=== PATIENT | female | born 1985 | race Caucasian/White ===

== ENCOUNTER 2016-09-07 12:34 | Emergency (ER) | payer MEDICAID ==
[2016-09-07 12:47] VITALS: O2SAT 97
[2016-09-07] MEDS ORDERED: NS 1,000 ML IV ONE (13:20)
[2016-09-07 13:30] LABS: % IMMATURE GRANULYOCYTES 0.3 % (0.0-1.1); ABSOLUTE IMMATURE GRANULOCYTES 0.02 10^3/uL (0.00-0.10); ADD DIFF? NO; ADD MORPH? NO; ADD SCAN? NO; ATYPICAL LYMPHOCYTE FLAG 10 (0-99); FRAGMENT RBC FLAG 0 (0-99); HEMATOCRIT 40.3 % (38.0-47.0); HEMOGLOBIN 14.1 g/dL (12.6-16.3); LEFT SHIFT FLG 0 (0-99); LIPEMIA HEMOLYSIS FLAG 90 (0-99); MEAN CELL HEMOGLOBIN 30.4 pg (27.9-34.1); MEAN CELL VOLUME 86.9 fL (81.5-99.8); MEAN PLATELET VOLUME 9.6 fL (8.7-11.7); PLATELET CLUMPS FLAG 0 (0-99); PLATELET COUNT 235 10^3/uL (150-400); RED BLOOD CELL COUNT 4.64 10^6/uL (4.18-5.33)
[2016-09-07 13:37] LABS: ANION GAP 12 mEq/L (8-16); CALCIUM 9.5 mg/dL (8.5-10.4); CARBON DIOXIDE 25 mEq/l (22-31); CHLORIDE 104 mEq/L (97-110); CREATININE 0.6 mg/dL (0.6-1.0); GLOMERULAR FILTRATION RATE > 60; GLUCOSE 90 mg/dL (70-100); POTASSIUM 3.9 mEq/L (3.5-5.2); SODIUM 141 mEq/L (134-144)
--- NOTE | 2016-09-07 13:48 | EDPHY ---
H & P Time Seen by Provider: 09/07/16 13:29 HPI/ROS: CHIEF COMPLAINT: diarrhea HISTORY OF PRESENT ILLNESS: Patient is a 30-year-old female with a history of polycystic ovarian syndrome and previous gastric bypass in 2005 who presents to the emergency department with diarrhea since Thursday. It is nonbloody and not black or dark. Patient initially thought she had a virus but her symptoms have persisted. She denies abdominal pain. She has had no nausea or vomiting. She denies dysuria or frequency. She is not weak. She has had no fevers or chills. REVIEW OF SYSTEMS: My complete review of systems is negative except as mentioned in the HPI. Past Medical/Surgical History: Includes polycystic ovarian syndrome, recurrent UTI Past surgical history: Cholecystectomy, gastric bypass, orthopedic surgery on her finger Social history: The patient denies smoking or drugs. Smoking Status: Never smoked Physical Exam: Vitals noted GENERAL: Well-appearing, in no acute distress, alert. HEENT: Eyes normal to inspection, normal pharynx, no signs of dehydration. NECK: No thyromegaly, no lymphadenopathy, supple. RESPIRATORY: Clear to auscultation bilaterally, no rales, rhonchi or wheezing. CVS: Regular rate and rhythm, no rubs, murmurs, or gallops. ABDOMEN: Soft, nontender, nondistended, no organomegaly. Benign BACK: Normal to inspection, no CVA tenderness. SKIN: Normal color, no rash, warm, dry. No pallor. EXTREMITIES: No pedal edema, no calf tenderness, no joint swelling. NEURO/PSYCH: Alert and oriented x3, normal mood and affect Constitutional: Initial Vital Signs Temperature (C) 36.8 C 09/07/16 12:43 Heart Rate 64 09/07/16 12:43 Respiratory Rate 16 09/07/16 12:43 Blood Pressure 113/64 09/07/16 12:43 O2 Sat (%) 97 09/07/16 12:43 O2 Delivery Mode Room Air Allergies/Adverse Reactions: Penicillins Allergy (Verified 09/16/15 11:25) Home Medications: Medication Instructions Recorded Multiple Vitamin 07/14/14 Vitamin B12 1000MCG/ML (RX) 07/14/14 CALCIUM 09/16/15 IRON 09/16/15 Spironolactone 09/07/16 Medical Decision Making ED Course/Re-evaluation: In the emergency department I discussed possible etiologies with the patient. Laboratory studies were ordered. Patient's CBC and chemistry were normal. Patient appears well on her exam. She has a benign abdomen. She has no urinary symptoms. I do not feel the patient needs a urine test at this time. I do not feel she needs stool studies at this point. I discussed this and answered her questions. She will follow up the [facility]. She is given warnings prior to leaving. Differential Diagnosis: My differential includes but is not limited to viral diarrhea, infectious diarrhea, Crohn's disease, diverticulitis, obstruction, perforation, urinary tract infection, pyelonephritis, electrolyte abnormality, sugar abnormality, - Data Points Laboratory Results: Laboratory Results 09/07/16 13:15 09/07/16 13:15 09/07/16 13:15 WBC 6.43 10^3/uL (3.80-9.50) RBC 4.64 10^6/uL (4.18-5.33) Hgb 14.1 g/dL (12.6-16.3) Hct 40.3 % (38.0-47.0) MCV 86.9 fL (81.5-99.8) MCH 30.4 pg (27.9-34.1) MCHC 35.0 g/dL (32.4-36.7) RDW 13.0 % (11.5-15.2) Plt Count 235 10^3/uL (150-400) MPV 9.6 fL (8.7-11.7) Neut % (Auto) 42.3 % (39.3-74.2) Lymph % (Auto) 44.9 % (15.0-45.0) [place] % (Auto) 8.6 % (4.5-13.0) Eos % (Auto) 3.3 % (0.6-7.6) Baso % (Auto) 0.6 % (0.3-1.7) Nucleat RBC Rel Count 0.0 % (0.0-0.2) Absolute Neuts (auto) 2.72 10^3/uL (1.70-6.50) Absolute Lymphs (auto) 2.89 10^3/uL (1.00-3.00) Absolute Monos (auto) 0.55 10^3/uL (0.30-0.80) Absolute Eos (auto) 0.21 10^3/uL (0.03-0.40) Absolute Basos (auto) 0.04 10^3/uL (0.02-0.10) Absolute Nucleated RBC 0.00 10^3/uL (0-0.01) Immature Gran % 0.3 % (0.0-1.1) Immature Gran # 0.02 10^3/uL (0.00-0.10) Sodium 141 mEq/L (134-144) Potassium 3.9 mEq/L (3.5-5.2) Chloride 104 mEq/L (97-110) Carbon Dioxide 25 mEq/l (22-31) Anion Gap 12 mEq/L (8-16) BUN 9 mg/dL (7-23) Creatinine 0.6 mg/dL (0.6-1.0) Estimated GFR > 60 Glucose 90 mg/dL (70-100) Calcium 9.5 mg/dL (8.5-10.4) Medications Given: Discontinued Medications Sodium Chloride (Ns) 1,000 mls @ 0 mls/hr IV ONCE ONE PRN Reason: Wide Open Stop: 09/07/16 13:21 Last Admin: 09/07/16 13:20 Dose: 1,000 mls Departure - Departure Disposition: Home, Routine, Self-Care Clinical Impression: Diarrhea Qualifiers: Diarrhea type: unspecified type Qualifier Code: (R19.7) Diarrhea, unspecified Condition: Good Instructions: Acute Diarrhea (ED) Additional Instructions: Return with increasing frequency of diarrhea, inability to stay hydrated, abdominal pain, fever, repeated vomiting or any other concerns. Referrals: Cora Mcneill, PAC [Primary Care Provider] - 2-3 days, call for appt.
[2016-09-07 15:15] VITALS: BP 106/53; PULSE 61; RESP 20; TEMP 98.8
== END 2016-09-07 15:34 | disposition home or self-care (01) ==
DX: R19.7 Diarrhea, unspecified (principal)

== ENCOUNTER → 2017-03-17 | Outpatient (CLI) | payer MEDICAID | LOC: FIMAGING 09:09 | PROVIDERS: ATTEND Nurse Practitioner Women's Health | DX: N63 Unspecified lump in breast (principal) ==

== ENCOUNTER 2017-09-23 13:58 | Emergency (ER) | payer MEDICAID ==
[2017-09-23] MEDS ORDERED: NS 1,000 ML IV ONE (16:23)
[2017-09-23 16:42] LABS: PLATELET COUNT 252 10^3/uL (150-400)
--- NOTE | 2017-09-23 18:10 | EDPHY ---
H & P Stated Complaint: pt c/o "fogginess" some changes in vision x 2 weeks, since dx ear infection Time Seen by Provider: 09/23/17 16:01 HPI/ROS: Chief complaint: Multiple complaints History of present illness: This is a 31-year-old female who presents to the emergency department for evaluation of multiple complaints. She reports generalized fatigue, body aches, joint aches and what she describes as a fogginess in her brain. She has been suffering from these specific symptoms since at least New Year's. However she states she has been sick with further symptoms for a number of months. She reports it began while she was living in [facility]. She was living there with her , who is from [facility], for the last 3 months. She reports over the last few months she has developed multiple symptoms which include abdominal aching and bloating, occasional diarrhea, blistering of the skin, recurrent ear infections. She has had to keep a journal as she has had numerous problems. She eventually decided to return to the [facility] with her as she did not appear to be improving there despite seeing multiple doctors. She did see her primary care doctor this week and reports she had blood studies and stool samples taken but has not received the results as of yet. Review of systems: A 10 point review of systems was obtained and other than described above was negative - Personal History LMP (Females 10-55): Over 28 Days Ago Tetanus Vaccine Date: 2008 - Medical/Surgical History Hx Asthma: No Hx Chronic Respiratory Disease: No Hx Diabetes: No Hx Cardiac Disease: No Hx Renal Disease: No Hx Cirrhosis: No Hx Alcoholism: No Hx HIV/AIDS: No Hx Splenectomy or Spleen Trauma: No Other PMH: Cholecystectomy, PCOS, Gastric bypass, ortho surg finger, recurrent UTI, pcos - Social History Smoking Status: Never smoked - Physical Exam Exam: General Appearance: Alert, nontoxic. Eyes: Pupils equal and round no pallor or injection. ENT, Mouth: Mucous membranes moist. Tympanic membranes, external auditory canals , external ears and surrounding soft tissue including over the mastoids are unremarkable. Nasopharynx is not injected. There is no rhinorrhea. Oropharynx is not injected. There is no edema. There is no exudate. There is no asymmetry. The uvula is midline. No elevation of the tongue. There is no hoarseness, no drooling, no trismus, no stridor. Respiratory: There are no retractions, lungs are clear to auscultation. Cardiovascular: Regular rate and rhythm. Gastrointestinal: Abdomen is soft and non tender, no masses, bowel sounds normal. Neurological: Alert and oriented x4. Cranial nerves 2-12 grossly intact. Strength and sensation intact and symmetrical. Ambulating without difficulty. No meningismus. Skin: Warm and dry, no rashes. Musculoskeletal: Neck is supple non tender. Extremities are symmetrical, full range of motion. Psychiatric: Patient is oriented X 3, there is no agitation. Constitutional: Initial Vital Signs Temperature (C) 36.8 C 09/23/17 14:05 Heart Rate 77 09/23/17 14:05 Respiratory Rate 18 09/23/17 14:05 Blood Pressure 118/80 09/23/17 14:05 O2 Sat (%) 98 09/23/17 14:05 O2 Delivery Mode Room Air Allergies/Adverse Reactions: Penicillins Allergy (Verified 09/16/15 11:25) Home Medications: Medication Instructions Recorded Vitamin B12 1000MCG/ML (RX) 07/14/14 IRON 09/16/15 Spironolactone 09/07/16 Medical Decision Making ED Course/Re-evaluation: Patient is discussed with my secondary supervising physician Dr. Skyler Peguero. Patient presents to the emergency department with a multitude of complaints that have been going on for a number of months. She is nontoxic. Vital signs are stable. Blood studies are unremarkable. I have had a lengthy discussion with her that there are potentially a number of causes that could be causing her symptoms and at this time it is not clear as to the cause of her symptoms. She is asked to continue to follow-up with her primary care doctor for recheck. She is also referred to infectious disease. Home care was discussed. Return precautions were given. Patient voiced understanding and agreement with plan. Differential Diagnosis: Included but not limited to infections of multiple etiologies, anemia, electrolyte disturbances, inflammatory processes, specifically auto immune - Data Points Laboratory Results: Laboratory Results 09/23/17 16:30 09/23/17 16:30 09/23/17 09/23/17 09/23/17 16:30 16:30 16:30 WBC 8.73 10^3/uL 10^3/uL (3.80-9.50) RBC 4.64 10^6/uL 10^6/uL (4.18-5.33) Hgb 14.2 g/dL g/dL (12.6-16.3) Hct 41.2 % % (38.0-47.0) MCV 88.8 fL fL (81.5-99.8) MCH 30.6 pg pg (27.9-34.1) MCHC 34.5 g/dL g/dL (32.4-36.7) RDW 13.3 % % (11.5-15.2) Plt Count 252 10^3/uL 10^3/uL (150-400) MPV 9.6 fL fL (8.7-11.7) Neut % (Auto) 66.2 % % (39.3-74.2) Lymph % (Auto) 28.1 % % (15.0-45.0) [place] % (Auto) 4.1 % L % (4.5-13.0) Eos % (Auto) 1.0 % % (0.6-7.6) Baso % (Auto) 0.3 % % (0.3-1.7) Nucleat RBC Rel Count 0.0 % % (0.0-0.2) Absolute Neuts (auto) 5.77 10^3/uL 10^3/uL (1.70-6.50) Absolute Lymphs (auto) 2.45 10^3/uL 10^3/uL (1.00-3.00) Absolute Monos (auto) 0.36 10^3/uL 10^3/uL (0.30-0.80) Absolute Eos (auto) 0.09 10^3/uL 10^3/uL (0.03-0.40) Absolute Basos (auto) 0.03 10^3/uL 10^3/uL (0.02-0.10) Absolute Nucleated RBC 0.00 10^3/uL 10^3/uL (0-0.01) Immature Gran % 0.3 % % (0.0-1.1) Immature Gran # 0.03 10^3/uL 10^3/uL (0.00-0.10) ESR 10 MM/HR MM/HR (0-20) Sodium 143 mEq/L mEq/L (135-145) Potassium 4.0 mEq/L mEq/L (3.5-5.2) Chloride 103 mEq/L mEq/L (97-110) Carbon Dioxide 26 mEq/l mEq/l (22-31) Anion Gap 14 mEq/L mEq/L (8-16) BUN 9 mg/dL mg/dL (7-23) Creatinine 0.6 mg/dL mg/dL (0.6-1.0) Estimated GFR > 60 Glucose 99 mg/dL mg/dL (70-100) Calcium 9.8 mg/dL mg/dL (8.5-10.4) Total Bilirubin 0.7 mg/dL mg/dL (0.1-1.4) Conjugated Bilirubin 0.3 mg/dL mg/dL (0.0-0.5) Unconjugated Bilirubin 0.4 mg/dL mg/dL (0.0-1.1) AST 24 IU/L IU/L (14-46) ALT 46 IU/L IU/L (9-52) Alkaline Phosphatase 69 IU/L IU/L (38-126) C-Reactive Protein < 5.0 mg/L mg/L (<10.0) Total Protein 8.0 g/dL g/dL (6.3-8.2) Albumin 4.7 g/dL g/dL (3.5-5.0) Lipase 121 IU/L IU/L (23-300) Beta HCG, Qual NEGATIVE Monoscreen NEGATIVE (NEGATIVE) Medications Given: Discontinued Medications Sodium Chloride (Ns) 1,000 mls @ 0 mls/hr IV EDNOW ONE; Wide Open PRN Reason: Protocol Stop: 09/23/17 16:24 Last Admin: 09/23/17 16:31 Dose: 1,000 mls Departure - Departure Disposition: Home, Routine, Self-Care Clinical Impression: Body aches Fatigue Qualifiers: Fatigue type: unspecified Qualified Code(s): R53.83 - Other fatigue Condition: Good Instructions: Fatigue (ED) Additional Instructions: Follow-up with your primary care doctor and Infectious Disease doctor for continued evaluation and care If symptoms worsen or new symptoms develop return to the emergency room for recheck Referrals: Cora Mcneill PAC [Primary Care Provider] - As per Instructions Fortunato Borjas MD [Medical Doctor] - As per Instructions
[2017-09-23 18:37] VITALS: BP 114/74; PULSE 68; RESP 16; TEMP 98.1; O2SAT 97
== END 2017-09-23 18:36 | disposition home or self-care (01) ==
DX: R53.83 Other fatigue (principal); R52 Pain, unspecified; E86.9 Volume depletion, unspecified

== ENCOUNTER → 2017-10-02 | Outpatient (CLI) | payer MEDICAID | LOC: FIMAGING 14:26 | PROVIDERS: ATTEND Nurse Practitioner | DX: R10.2 Pelvic and perineal pain (principal) ==

== ENCOUNTER 2017-11-29 11:03 | Emergency (ER) | payer MEDICAID ==
[2017-11-29 11:14] VITALS: RESP 16
--- NOTE | 2017-11-29 11:18 | EDPHY ---
H & P Stated Complaint: fatigue, depressed, low appetite Time Seen by Provider: 11/29/17 11:17 HPI/ROS: HPI: This is a 32-year-old female who presents with Chief Complaint: fatigue, depressed, low appetite Location:body Quality: Multiple somatic complaints Duration: Weeks Signs and Symptoms: No fever, no weight loss, no body aches, no joint pain, no rash, no neck stiffness, no headache, no abdominal pain, no nausea, no vomiting , no back pain, no urinary symptoms Timing: Daily Severity: [id number] Context: Patient has a history of recurrent urinary tract infections and polycystic ovary syndrome presents to the emergency room with multiple somatic complaints that of incurring over the last several weeks. She reports that earlier in the year she was diagnosed with Giardia after she travel to [facility] with her for several months. She completed antibiotic treatment and then was on probiotics for 2 weeks but feels like her bowels have never returned to normal. She is eating and drinking fine but notes a decreased appetite. She reports that she has generalized fatigue, low energy level. Feels depressed but denies suicidal ideation, homicidal ideation, hallucinations. Chart review shows mono negative in September. Modifying Factors: None Comment: ROS: see HPI Constitutional: No fever, no chills, no weight loss Eyes: No blurred vision Respiratory: No shortness of breath, no cough Cardiovascular: No chest pain Gastrointestinal: No nausea, no vomiting, no diarrhea Genitourinary: No dysuria Extremities: No myalgias Neurologic: No weakness, no numbness Skin: No rashes Hematologic: No bruising, no bleeding MEDICAL/SURGICAL/SOCIAL HISTORY: Medical history: recurrent UTI, polycystic ovary syndrome Surgical history: Cholecystectomy, PCOS, Gastric bypass, finger surgery Social history: . CONSTITUTIONAL: Flat affect adult white female, nontoxic in appearance, awake and alert, no obvious distress HEENT: Atraumatic and normocephalic, PERRL, EOMI. Tympanic membranes clear. Oropharynx clear, no exudate and moist pink mucosa. Airway patent. No lymphadenopathy. No meningismus. Cardiovascular: Normal S1/S2, regular rate, regular rhythm, without murmur rub or gallop. PULMONARY/CHEST: Symmetrical and nontender. Clear to auscultation bilaterally. Good air movement. No accessory muscle usage. ABDOMEN: Soft, nondistended, nontender, no rebound, no guarding, no peritoneal signs, no masses or organomegaly. No CVAT. EXTREMITIES: 2/2 pulses, strength 5/5, no deformities, no clubbing, no cyanosis or edema. NEUROLOGICAL: no focal neuro deficits. GCS 15. SKIN: Warm and dry, no erythema. no rash. Good capillary refill. Source: Patient, Family () Exam Limitations: No limitations - Personal History Tetanus Vaccine Date: 2008 - Medical/Surgical History Hx Asthma: No Hx Chronic Respiratory Disease: No Hx Diabetes: No Hx Cardiac Disease: No Hx Renal Disease: No Hx Cirrhosis: No Hx Alcoholism: No Hx HIV/AIDS: No Hx Splenectomy or Spleen Trauma: No Other PMH: Cholecystectomy, PCOS, Gastric bypass, ortho surg finger, recurrent UTI, pcos - Social History Smoking Status: Never smoked Constitutional: Initial Vital Signs Temperature (C) 37.1 C 11/29/17 11:11 Heart Rate 76 11/29/17 11:11 Respiratory Rate 16 11/29/17 11:11 Blood Pressure 127/70 H 11/29/17 11:11 O2 Sat (%) 97 11/29/17 11:11 O2 Delivery Mode Room Air Allergies/Adverse Reactions: Penicillins Allergy (Verified 09/16/15 11:25) Home Medications: Medication Instructions Recorded Vitamin B12 1000MCG/ML (RX) 07/14/14 IRON 09/16/15 Spironolactone 09/07/16 Medical Decision Making ED Course/Re-evaluation: Labs and urinalysis ordered Vital signs stable upon arrival. Does not meet M1 criteria or Detainer Hold Labs and urinalysis grossly unremarkable. Discuss follow-up with primary care and behavioral health. This patient was seen under the supervision of my secondary supervising physician. I evaluated care for this patient independently. Differential Diagnosis: Differential diagnosis includes but is not limited to autoimmune disorder, viral syndrome, anemia, thyroid disease, urinary tract infection, major depression. - Data Points Laboratory Results: Laboratory Results 11/29/17 11:41 11/29/17 11:41 11/29/17 11/29/17 11/29/17 12:00 11:41 11:41 WBC RBC Hgb Hct MCV MCH MCHC RDW Plt Count MPV Neut % (Auto) Lymph % (Auto) [place] % (Auto) Eos % (Auto) Baso % (Auto) Nucleat RBC Rel Count Absolute Neuts (auto) Absolute Lymphs (auto) Absolute Monos (auto) Absolute Eos (auto) Absolute Basos (auto) Absolute Nucleated RBC Immature Gran % Immature Gran # ESR Sodium 142 mEq/L mEq/L (135-145) Potassium 4.0 mEq/L mEq/L (3.5-5.2) Chloride 106 mEq/L mEq/L (97-110) Carbon Dioxide 23 mEq/l mEq/l (22-31) Anion Gap 13 mEq/L mEq/L (8-16) BUN 12 mg/dL mg/dL (7-23) Creatinine 0.6 mg/dL mg/dL (0.6-1.0) Estimated GFR > 60 Glucose 103 mg/dL H mg/dL (70-100) Calcium 9.7 mg/dL mg/dL (8.5-10.4) Total Bilirubin 0.9 mg/dL mg/dL (0.1-1.4) AST 35 IU/L IU/L (14-46) ALT 65 IU/L H IU/L (9-52) Alkaline Phosphatase 54 IU/L IU/L (38-126) Total Protein 7.7 g/dL g/dL (6.3-8.2) Albumin 4.6 g/dL g/dL (3.5-5.0) TSH 1.840 uIU/mL uIU/mL (0.465-4.680) Beta HCG, Qual NEGATIVE Urine Color PALE YELLOW Urine Appearance CLEAR Urine pH 7.0 (5.0-7.5) Ur Specific [place] 1.001 L (1.002-1.030) Urine Protein NEGATIVE (NEGATIVE) Urine Ketones NEGATIVE (NEGATIVE) Urine Blood NEGATIVE (NEGATIVE) Urine Nitrate NEGATIVE (NEGATIVE) Urine Bilirubin NEGATIVE (NEGATIVE) Urine Urobilinogen NEGATIVE EU EU (0.2-1.0) Ur Leukocyte Esterase NEGATIVE (NEGATIVE) Urine Glucose NEGATIVE (NEGATIVE) 11/29/17 11:41 WBC 8.26 10^3/uL 10^3/uL (3.80-9.50) RBC 4.80 10^6/uL 10^6/uL (4.18-5.33) Hgb 14.1 g/dL g/dL (12.6-16.3) Hct 42.0 % % (38.0-47.0) MCV 87.5 fL fL (81.5-99.8) MCH 29.4 pg pg (27.9-34.1) MCHC 33.6 g/dL g/dL (32.4-36.7) RDW 13.2 % % (11.5-15.2) Plt Count 248 10^3/uL 10^3/uL (150-400) MPV 9.9 fL fL (8.7-11.7) Neut % (Auto) 74.3 % H % (39.3-74.2) Lymph % (Auto) 19.7 % % (15.0-45.0) [place] % (Auto) 4.4 % L % (4.5-13.0) Eos % (Auto) 0.8 % % (0.6-7.6) Baso % (Auto) 0.6 % % (0.3-1.7) Nucleat RBC Rel Count 0.0 % % (0.0-0.2) Absolute Neuts (auto) 6.13 10^3/uL 10^3/uL (1.70-6.50) Absolute Lymphs (auto) 1.63 10^3/uL 10^3/uL (1.00-3.00) Absolute Monos (auto) 0.36 10^3/uL 10^3/uL (0.30-0.80) Absolute Eos (auto) 0.07 10^3/uL 10^3/uL (0.03-0.40) Absolute Basos (auto) 0.05 10^3/uL 10^3/uL (0.02-0.10) Absolute Nucleated RBC 0.00 10^3/uL 10^3/uL (0-0.01) Immature Gran % 0.2 % % (0.0-1.1) Immature Gran # 0.02 10^3/uL 10^3/uL (0.00-0.10) ESR 8 MM/HR MM/HR (0-20) Sodium Potassium Chloride Carbon Dioxide Anion Gap BUN Creatinine Estimated GFR Glucose Calcium Total Bilirubin AST ALT Alkaline Phosphatase Total Protein Albumin TSH Beta HCG, Qual Urine Color Urine Appearance Urine pH Ur Specific [place] Urine Protein Urine Ketones Urine Blood Urine Nitrate Urine Bilirubin Urine Urobilinogen Ur Leukocyte Esterase Urine Glucose Departure - Departure Disposition: Home, Routine, Self-Care Clinical Impression: Fatigue Qualifiers: Fatigue type: due to depression Qualified Code(s): F32.9 - Major depressive disorder, single episode, unspecified Condition: Good Instructions: Chronic Fatigue Syndrome (ED), Fatigue (ED) Additional Instructions: Laboratory studies and urinalysis are grossly unremarkable today. Please follow-up with your primary care provider for further testing including vitamin-D deficiency and iron deficiency. Take probiotics daily. It may be beneficial to talk to your primary care provider about starting an antidepressant medication or referral to Behavioral Health. Continue to keep a journal of all of your symptoms. Referrals: Cora Mcneill, PAC [Primary Care Provider] - As per Instructions [facility] [Outside] - As per Instructions
[2017-11-29 11:49] LABS: PLATELET COUNT 248 10^3/uL (150-400)
[2017-11-29 12:47] VITALS: BP 113/63; PULSE 91; TEMP 97.3; O2SAT 98
== END 2017-11-29 12:59 | disposition home or self-care (01) ==
DX: F32.9 Major depressive disorder, single episode, unspecified (principal)

== ENCOUNTER 2018-08-14 16:38 | Emergency (ER) | payer MEDICAID ==
[2018-08-14] MEDS ORDERED: MAG HYDROX/AL HYDROX/SIMETH 30 ML UDCUP PO ONE (17:00)
[2018-08-14] MEDS ORDERED: HYOSCYAMINE SULFATE 0.125 MG TAB PO ONE (17:00)
[2018-08-14] MEDS ORDERED: NS 1,000 ML IV ONE (17:00)
[2018-08-14] MEDS ORDERED: LIDOCAINE 2% VISCOUS 15 ML UDCUP PO ONE (17:00)
--- NOTE | 2018-08-14 17:04 | EDPHY ---
H & P Stated Complaint: Abd pain~few weeks;seems associated with food ingestion - Personal History LMP (Females 10-55): 22-28 Days Ago Current Tetanus Diphtheria and Acellular Pertussis (TDAP): Yes Tetanus Vaccine Date: 2008 - Medical/Surgical History Hx Asthma: No Hx Chronic Respiratory Disease: No Hx Diabetes: No Hx Cardiac Disease: No Hx Renal Disease: No Hx Cirrhosis: No Hx Alcoholism: No Hx HIV/AIDS: No Hx Splenectomy or Spleen Trauma: No Other PMH: Cholecystectomy, PCOS, Gastric bypass, ortho surg finger, recurrent UTI, pcos - Social History Smoking Status: Never smoked Time Seen by Provider: 08/14/18 16:53 HPI/ROS: Chief complaint: Abdominal pain History of present illness: This is a 32-year-old female with a history of a cholecystectomy as well as a gastric bypass who presents to the emergency department for evaluation of abdominal pain. She reports she has had intermittent pain for the last few weeks. It is in the left, upper aspect of the abdomen. She did describes a gnawing sensation that radiates to her back. She does state is worse after eating. She has had associated nausea but no vomiting. No report of fever, no diarrhea or constipation, no blood noted in the stools, no urinary symptoms. She has never had similar. Review of systems: A 10 point review of systems was obtained and other than described above was negative (Avtar Bedolla) - Physical Exam Exam: General Appearance: Alert, nontoxic. Eyes: Pupils equal and round no pallor or injection. ENT, Mouth: Mucous membranes moist. Respiratory: There are no retractions, lungs are clear to auscultation. Cardiovascular: Regular rate and rhythm. Gastrointestinal: Bowel sounds are normal. The abdomen is soft and nondistended. There is mild left upper quadrant tenderness. However no guarding or other peritoneal signs. Neurological: Alert and oriented x4. Skin: Warm and dry, no rashes. Musculoskeletal: Neck is supple non tender. Extremities are symmetrical, full range of motion. Psychiatric: Patient is oriented X 3, there is no agitation. (Avtar Bedolla) Constitutional: Initial Vital Signs Temperature (C) 37.2 C 08/14/18 16:40 Heart Rate 65 08/14/18 16:40 Respiratory Rate 16 08/14/18 16:40 Blood Pressure 132/69 H 08/14/18 16:40 O2 Sat (%) 98 08/14/18 16:40 O2 Delivery Mode Room Air Allergies/Adverse Reactions: Penicillins Allergy (Intermediate, Verified 08/14/18 16:44) hives as child Home Medications: Medication Instructions Recorded B12 08/14/18 Inositol 500 mg PO 08/14/18 Lactobacillus Acidophilus 1 each PO 08/14/18 [Probiotic] Medical Decision Making ED Course/Re-evaluation: Patient seen under the supervision of my secondary supervising physician Dr. Althea Napier. Patient presents to the emergency department for abdominal pain for the last few weeks, primarily occurring after eating. She is nontoxic. Vital signs are stable. Blood studies are largely unremarkable. She was given a GI cocktail and her symptoms did essentially resolve. Repeat abdominal exam prior to discharge remain benign. Certainly this could be a gastritis or peptic ulcer disease. I will start her on Zantac. She has an appointment with her primary care doctor on Thursday for recheck and I have encouraged her to keep this appointment. Home care is discussed. She is given strict return precautions. (Avtar Bedolla) The patient was evaluated and managed by the physician clinical medical assistant. I have reviewed this chart and I agree with the findings and plan of care as documented , as indicated by my signature. I am the secondary supervising physician. ( Althea Napier) Differential Diagnosis: Included but not limited to gastritis, peptic ulcer disease, biliary tract disease, pancreatitis, colitis, urinary tract disease (Avtar Bedolla) - Data Points Laboratory Results: Laboratory Results 08/14/18 17:19 08/14/18 17:19 Medications Given: Discontinued Medications Al Hydroxide/Mg Hydroxide (Maalox Susp) 30 ml PO ONCE ONE Stop: 08/14/18 17:01 Last Admin: 08/14/18 17:40 Dose: 30 ml Hyoscyamine Sulfate (Levsin, Hyomax-Sl) 0.25 mg PO ONCE ONE Stop: 08/14/18 17:01 Last Admin: 08/14/18 17:40 Dose: 0.25 mg Sodium Chloride (Ns) 1,000 mls @ 0 mls/hr IV EDNOW ONE; Wide Open PRN Reason: Protocol Stop: 08/14/18 17:01 Last Admin: 08/14/18 17:40 Dose: 1,000 mls Lidocaine (Lidocaine 2% Viscous) 15 ml PO ONCE ONE Stop: 08/14/18 17:01 Last Admin: 12/08/18 17:40 Dose: 15 ml Departure - Departure Disposition: Home, Routine, Self-Care Clinical Impression: Abdominal pain Qualifiers: Abdominal location: left upper quadrant Qualified Code(s): R10.12 - Left upper quadrant pain Condition: Good Instructions: Acute Abdominal Pain (ED) Additional Instructions: Follow-up with your primary care doctor on Thursday as already arranged Use [id number] Zantac as directed for the next 2 weeks This symptoms return or new symptoms develop return to the emergency department for recheck Referrals: Cora Mcneill, PAC [Primary Care Provider] - As per Instructions
[2018-08-14 17:32] LABS: PLATELET COUNT 244 10^3/uL (150-400)
[2018-08-14 18:46] VITALS: BP 115/66
== END 2018-08-14 18:45 | disposition home or self-care (01) ==
DX: R10.12 Left upper quadrant pain (principal); E86.9 Volume depletion, unspecified

== ENCOUNTER 2018-11-29 07:02 | Emergency (ER) | payer MEDICAID ==
--- NOTE | 2018-11-29 07:27 | EDPHY ---
H & P Stated Complaint: [address] seen UC strep and flu negative Time Seen by Provider: 11/29/18 07:17 HPI/ROS: CHIEF COMPLAINT: Sore throat, pleurisy HISTORY OF PRESENT ILLNESS: Patient is a 33-year-old female with a history of gastric bypass and cholecystectomy who comes to the emergency department complaining of a persistent sore throat and now pleurisy for the last few days. She states that she has had a nonproductive cough cough and fevers for about 2 weeks but then 3 days ago developed into a sore throat. She went to the urgent care and had a negative flu negative strep swab. Her fevers have somewhat subsided but now over the last 24 hr she has had pleurisy. No recent travel. No leg swelling. She does not smoke. No control pills or recent procedures. No history of cardiac disease. Severity: Mild Modifying factors: None REVIEW OF SYSTEMS: Constitutional: denies: chills, fever, recent illness, recent injury EENTM: denies: blurred vision, double vision, nose congestion Respiratory: denies: cough, shortness of breath Cardiac: denies: chest pain, irregular heart rate, lightheadedness, palpitations Gastrointestinal/Abdominal: denies: abdominal pain, diarrhea, nausea, vomiting, blood streaked stools Genitourinary: denies: dysuria, frequency, hematuria, pain Musculoskeletal: denies: joint pain, muscle pain Skin: denies: lesions, rash, jaundice, bruising Neurological: denies: headache, numbness, paresthesia, tingling, dizziness, weakness Hematologic/Lymphatic: denies: blood clots, easy bleeding, easy bruising Immunologic/allergic: denies: HIV/AIDS, transplant 10 systems reviewed and negative except as noted EXAM: GENERAL: Well-appearing, overweight and in no acute distress. 98% on room air , not tachycardic HEAD: Atraumatic, normocephalic. EYES: Pupils equal round and reactive to light, extraocular movements intact, sclera anicteric, conjunctiva are normal. ENT: TMs normal, nares patent, oropharynx clear without exudates. Moist mucous membranes. NECK: Normal range of motion, supple without lymphadenopathy or JVD. LUNGS: Breath sounds clear to auscultation bilaterally and equal. No wheezes rales or rhonchi. HEART: Regular rate and rhythm without murmurs, rubs or gallops. ABDOMEN: Soft, nontender, normoactive bowel sounds. No guarding, no rebound. No masses appreciated. BACK: No CVA tenderness, no spinal tenderness, step-offs or deformities EXTREMITIES: Normal range of motion, no pitting or edema. No clubbing or cyanosis. NEUROLOGICAL: Cranial nerves II through XII grossly intact. Normal speech, normal gait. 5/5 strength, normal movement in all extremities, normal sensation , normal reflexes PSYCH: Normal mood, normal affect. SKIN: Warm, dry, normal turgor, no visible rashes or lesions. Source: Patient Exam Limitations: No limitations - Personal History LMP (Females 10-55): 22-28 Days Ago Current Tetanus Diphtheria and Acellular Pertussis (TDAP): Yes Tetanus Vaccine Date: 2008 - Medical/Surgical History Hx Asthma: No Hx Chronic Respiratory Disease: No Hx Diabetes: No Hx Cardiac Disease: No Hx Renal Disease: No Hx Cirrhosis: No Hx Alcoholism: No Hx HIV/AIDS: No Hx Splenectomy or Spleen Trauma: No Other PMH: Cholecystectomy, PCOS, Gastric bypass, ortho surg finger, recurrent UTI, pcos - Family History Significant Family History: No pertinent family hx - Social History Smoking Status: Never smoked Alcohol Use: None Constitutional: Initial Vital Signs Temperature (C) 37 C 11/29/18 07:06 Heart Rate 77 11/29/18 07:06 Respiratory Rate 17 11/29/18 07:06 Blood Pressure 118/62 11/29/18 07:06 O2 Sat (%) 99 11/29/18 07:06 O2 Delivery Mode Room Air Allergies/Adverse Reactions: Penicillins Allergy (Intermediate, Verified 11/29/18 07:06) hives as child Home Medications: Medication Instructions Recorded B12 08/14/18 Inositol 500 mg PO 08/14/18 Lactobacillus Acidophilus 1 each PO 08/14/18 [Probiotic] Medical Decision Making - Diagnostics Imaging Results: Imaging Impressions Chest X-Ray 11/29/18 07:22 Impression: Normal chest x-ray. Imaging: Discussed imaging studies w/ custom miller Radiologist ED Course/Re-evaluation: PERC score negative. 8:15 a.m. the patient is doing well. X-ray and strep tests are reassuring. Person pending. Patient feels reassured. Differential Diagnosis: Partial list of the Differential diagnosis considered include but were not limited to; viral syndrome, pleurisy, pneumonia, mono and although unlikely based on the history and physical exam, I also considered pneumothorax, pericarditis, PE, acute coronary disease. I discussed these differential diagnoses and the plan with the patient as well as the usual and expected course. The patient understands that the diagnosis is provisional and that in medicine we are not always correct and that further workup is often warranted. Usual and customary warnings were given. All of the patient's questions were answered. The patient was instructed to return to the emergency department should the symptoms at all worsen or return, otherwise to followup with the physician as we discussed. - Data Points Laboratory Results: 11/29/18 11/29/18 11/29/18 Unknown 07:50 07:30 Monoscreen NEGATIVE (NEGATIVE) Group A Strep Screen NEGATIVE (NEGATIVE) Group A Strep DNA Pending Departure - Departure Disposition: Home, Routine, Self-Care Clinical Impression: Viral syndrome Condition: Fair Instructions: Viral Syndrome (ED) Referrals: Cora Mcneill PAC [Primary Care Provider] - As per Instructions Stand Alone Forms: Airline Excuse
[2018-11-29 08:51] VITALS: BP 112/62
== END 2018-11-29 08:54 | disposition home or self-care (01) ==
DX: B34.9 Viral infection, unspecified (principal); Z90.49 Acquired absence of other specified parts of digestive tract; Z98.84 Bariatric surgery status

== ENCOUNTER 2018-12-19 23:35 | Emergency (ER) | payer MEDICAID ==
--- NOTE | 2018-12-20 01:03 | EDPHY ---
H & P Stated Complaint: "Feels weird after sex- dizzy, shaky,nausea" Time Seen by Provider: 12/20/18 00:27 HPI/ROS: HPI The patient presents with dizziness and palpitations which began several hours ago after having an intense orgasm during sex. Her symptoms have been persistent though have gradually improved. She feels dizziness and general weakness when she moves her body and when she stands up. She feels better when she does not move. She feels palpitations which she describes as her heart racing. She ate some food but her symptoms continued. She sometimes feels this way when she is hypoglycemic she says. She is status post gastric bypass. She does not have any chest pain. She does not have a headache. She feels mildly nauseated.. REVIEW OF SYSTEMS 10 systems were reviewed and negative with the exception of the elements mentioned in the history of present illness. PMHx: History of gastric bypass, history of PCOS Soc Hx: Here with her partner PHYSICAL General Appearance: Alert, no distress Eyes: Pupils equal and round no pallor or injection ENT, Mouth: Mucous membranes moist Respiratory: There are no retractions, lungs are clear to auscultation Cardiovascular: Regular rate and rhythm Gastrointestinal: Abdomen is soft and non-tender, no masses, bowel sounds normal Neurological: A&O, moves all extremities Skin: Warm and dry, no rashes Musculoskeletal: Neck is supple non tender Extremities: symmetrical, full range of motion Psychiatric: Patient is oriented X 3, there is no agitation Source: Patient Exam Limitations: No limitations - Personal History LMP (Females 10-55): 8-14 Days Ago Current Tetanus Diphtheria and Acellular Pertussis (TDAP): No Tetanus Vaccine Date: 2008 - Medical/Surgical History Hx Asthma: No Hx Chronic Respiratory Disease: No Hx Diabetes: No Hx Cardiac Disease: No Hx Renal Disease: No Hx Cirrhosis: No Hx Alcoholism: No Hx HIV/AIDS: No Hx Splenectomy or Spleen Trauma: No Other PMH: Cholecystectomy, PCOS, Gastric bypass, ortho surg finger, recurrent UTI, pcos - Social History Smoking Status: Never smoked Constitutional: Initial Vital Signs Temperature (C) 36.7 C 12/19/18 23:39 Heart Rate 88 12/19/18 23:39 Respiratory Rate 16 12/19/18 23:39 Blood Pressure 136/94 H 12/19/18 23:39 O2 Sat (%) 98 12/19/18 23:39 O2 Delivery Mode Room Air Allergies/Adverse Reactions: Penicillins Allergy (Intermediate, Verified 12/19/18 23:42) hives as child Home Medications: Medication Instructions Recorded B12 08/14/18 Inositol 500 mg PO 08/14/18 Lactobacillus Acidophilus 1 each PO 08/14/18 [Probiotic] Medical Decision Making - Diagnostics EKG Interpretation: EKG: Complete interpretation has been separately recorded in the [email or web address] archive. Summary impression: Normal sinus rhythm Differential Diagnosis: 33-year-old female with complaint of palpitations, dizziness, weakness which is generalized after having intercourse tonight. Here, she has normal vital signs and a normal physical exam. Differential diagnosis includes PACs, or other arrhythmia, dehydration, hypoglycemia. EKG was unremarkable. Chemistry panel was normal. UA was normal. She will be discharged home. - Data Points Laboratory Results: 12/20/18 12/19/18 01:11 23:45 POC Hgb 13.3 gm/dL gm/dL (12.6-16.3) POC Hct 39 % % (38-47) POC Sodium 140 mEq/L mEq/L (135-145) POC Potassium 3.7 mEq/L mEq/L (3.3-5.0) POC Chloride 96 mEq/L L mEq/L (97-110) POC Total CO2 24 mEq/L mEq/L (22-31) POC BUN < 3 mg/dL L mg/dL (7-23) POC Creatinine 0.6 mg/dL mg/dL (0.6-1.0) POC Glucose 99 mg/dL mg/dL (70-100) Urine Color COLORLESS Urine Appearance CLEAR Urine pH 7.0 (5.0-7.5) Ur Specific [place] 1.001 L (1.002-1.030) Urine Protein NEGATIVE (NEGATIVE) Urine Ketones NEGATIVE (NEGATIVE) Urine Blood NEGATIVE (NEGATIVE) Urine Nitrate NEGATIVE (NEGATIVE) Urine Bilirubin NEGATIVE (NEGATIVE) Urine Urobilinogen NEGATIVE EU EU (0.2-1.0) Ur Leukocyte Esterase NEGATIVE (NEGATIVE) Urine Glucose NEGATIVE (NEGATIVE) Point of Care Test Results: Chemistry 12/20/18 01:11 POC Sodium 140 mEq/L mEq/L (135-145) POC Potassium 3.7 mEq/L mEq/L (3.3-5.0) POC Chloride 96 mEq/L L mEq/L (97-110) POC Total CO2 24 mEq/L mEq/L (22-31) POC BUN < 3 mg/dL L mg/dL (7-23) POC Creatinine 0.6 mg/dL mg/dL (0.6-1.0) POC Glucose 99 mg/dL mg/dL (70-100) ISTAT H&H 12/20/18 01:11 POC Hgb 13.3 gm/dL gm/dL (12.6-16.3) POC Hct 39 % % (38-47) Departure - Departure Disposition: Home, Routine, Self-Care Clinical Impression: Weakness, Palpitations Condition: Good Instructions: Heart Palpitations (DC), Weakness (ED) Additional Instructions: Please follow-up with your regular doctor if your symptoms continue. Your EKG today was normal. Your blood test showed that your glucose was 99. Your urine test was normal. Referrals: Cora Mcneill, PAC [Primary Care Provider] - As per Instructions
[2018-12-20 01:16] VITALS: BP 126/74
--- NOTE | 2018-12-20 07:11 | CPEKG ---
Test Reason : OPEN Blood Pressure : / mmHG Vent. Rate : 070 BPM Atrial Rate : 071 BPM P-R Int : 133 ms QRS Dur : 090 ms QT Int : 391 ms P-R-T Axes : 032 048 025 degrees QTc Int : 422 ms Sinus rhythm Abnormal inferior Q waves Confirmed by Nancy Florentino ([id number]) on 12/20/2018 7:11:13 AM Referred By: Nancy Florentino Confirmed By:Nancy Florentino
== END 2018-12-20 01:49 | disposition home or self-care (01) ==
DX: R00.2 Palpitations (principal); R53.1 Weakness
CPT/HCPCS: 82435-PO; 82565-PO; 82947-PO; 84132-PO; 84295-PO; 84520-PO; 85014-ER